=== PATIENT | male | born 1970 | race Caucasian/White ===

== ENCOUNTER 2017-02-26 13:40 | Emergency (ER) | payer BC ==
[~2017-02-26] VITALS: Ht 182.9 cm; Wt 122.9 kg
[~2017-02-26 13:40] MED LIST: ALEVE220 MG PO
[2017-02-26] MEDS ORDERED: PROAIR HFA8.5 GM INH (14:37)
[2017-02-26] MEDS ORDERED: PREDNISONE 20 M20 M1 PO (14:37)
[2017-02-26] MEDS ORDERED: ZPAK PO (14:37)
[2017-02-26] MEDS ORDERED: TESSALON PERLE100 MG PO (14:38)
[2017-02-26 14:55] VITALS: BP 156/88
== END 2017-02-26 14:56 | disposition home or self-care (01) ==
LOC: M.ERS 13:40
DX: J20.9 Acute bronchitis, unspecified (principal); K21.9 Gastro-esophageal reflux disease without esophagitis

== ENCOUNTER 2017-10-31 19:37 | Emergency (ER) | payer BC ==
[~2017-10-31] VITALS: Ht 182.9 cm; Wt 122.9 kg
[~2017-10-31 19:37] MED LIST changes: +PREDNISONE 20 M20 M1 PO; +PROAIR HFA8.5 GM INH; +TESSALON PERLE100 MG PO; +ZPAK PO
[2017-10-31] MEDS ORDERED: BACTRIM DS TAB1 EACH PO (20:24)
[2017-10-31] MEDS ORDERED: KEFLEX500 M1 PO (20:24)
[2017-10-31 20:31] VITALS: BP 142/96
== END 2017-10-31 20:32 | disposition home or self-care (01) ==
LOC: M.ERS 19:37
DX: L02.414 Cutaneous abscess of left upper limb (principal); L03.114 Cellulitis of left upper limb; K21.9 Gastro-esophageal reflux disease without esophagitis; F17.210 Nicotine dependence, cigarettes, uncomplicated

== ENCOUNTER 2018-03-13 23:27 | Emergency (ER) | payer OTHER ==
[~2018-03-13] VITALS: Ht 182.9 cm; Wt 135.2 kg
[~2018-03-13 23:27] MED LIST changes: +BACTRIM DS TAB1 EACH PO; +KEFLEX500 M1 PO
[2018-03-14] MEDS ORDERED: ZPAK PO (00:04)
[2018-03-14] MEDS ORDERED: PREDNISONE 20 M20 M1 PO (00:04)
[2018-03-14 00:23] VITALS: BP 142/92
== END 2018-03-14 00:23 | disposition home or self-care (01) ==
LOC: M.ERS 23:27
DX: J20.9 Acute bronchitis, unspecified (principal); J06.9 Acute upper respiratory infection, unspecified; K21.9 Gastro-esophageal reflux disease without esophagitis

== ENCOUNTER 2019-06-01 19:02 | Emergency (ER) | payer OTHER ==
[~2019-06-01] VITALS: Ht 182.9 cm; Wt 136.5 kg
[2019-06-01] MEDS ORDERED: PROAIR HFA8.5 GM INH (19:12)
[2019-06-01] MEDS ORDERED: BENZONATATE200 MG PO (19:13)
[2019-06-01] MEDS ORDERED: AUGMENTIN 875-1 EACH PO (19:13)
[2019-06-01] MEDS ORDERED: VENTOLIN HFA 1818 GM INH (19:39)
[2019-06-01] MEDS ORDERED: SPACERADULT INH (19:39)
[2019-06-01 20:08] LABS: INFLUENZA A ANTIGEN Negative (Negative); INFLUENZA B ANTIGEN Negative (Negative)
[2019-06-01 20:47] VITALS: BP 136/82
--- NOTE | 2019-06-03 10:16 | EKG ---
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
== END 2019-06-01 20:49 | disposition home or self-care (01) ==
LOC: M.ERS 19:02
PROVIDERS: Emergency Medicine
DX: J40 Bronchitis, not specified as acute or chronic (principal); K21.9 Gastro-esophageal reflux disease without esophagitis

== ENCOUNTER 2019-08-01 20:37 | Emergency (ER) | payer OTHER ==
[~2019-08-01] VITALS: Ht 182.9 cm; Wt 137.0 kg
[~2019-08-01 20:37] MED LIST changes: +AUGMENTIN 875-1 EACH PO; +BENZONATATE200 MG PO; +SPACERADULT INH; +VENTOLIN HFA 1818 GM INH
[2019-08-01 21:10] LABS: URINE BILIRUBIN NEGATIVE (Negative); URINE BLOOD NEGATIVE (Negative); URINE CLARITY CLEAR; URINE COLOR YELLOW; URINE GLUCOSE-RANDOM NEGATIVE (Negative); URINE KETONES TRACE (Negative); URINE LEUKOCYTES-REFLEX NEGATIVE (Negative); URINE NITRITE-REFLEX NEGATIVE (Negative); URINE PROTEIN NEGATIVE (Negative); URINE SPECIFIC GRAVITY >= 1.030 (1.005-1.030); URINE UROBILINOGEN 0.2 E.U./dl (0.2-1.0)
[2019-08-01 21:36] LABS: ABSOLUTE BASOPHILS 0.1 thou/uL (0.0-0.2); ABSOLUTE EOSINOPHILS 0.4 thou/uL (0.0-0.7); ABSOLUTE LYMPHOCYTES 1.8 thou/uL (0.8-5.3); ABSOLUTE MONOCYTES 0.6 thou/uL (0.0-1.2); ABSOLUTE NEUTROPHILS 3.2 thou/uL (1.6-8.1); EOSINOPHILS 6.1 %; HEMOGLOBIN 13.8 gm/dL (14.0-18.0); LYMPHOCYTES 30.5 %; MCH 30.5 pg (26.0-34.0); MCHC 35.3 g/dL (28.0-37.0); MCV 86.5 fL (80.0-100.0); MONOCYTES 9.6 %; MPV 9.1 fl. (7.2-11.1); NUCLEATED RBCS 0 /100WBC; PLATELET COUNT* 151 thou/uL (150-400); POLYS 52.8 %; RDW-CV 14.1 % (10.5-14.5)
[2019-08-01 21:58] LABS: ALBUMIN 3.3 g/dL (3.4-5.0); CALCIUM 8.9 mg/dL (8.5-10.1); CREATININE 1.4 mg/dL (0.6-1.3); TOTAL BILIRUBIN 0.3 mg/dL (<0.1-1.0); TOTAL PROTEIN 7.3 g/dL (6.4-8.2)
[2019-08-02] MEDS ORDERED: MAGNESIUM CITR296 ML PO (00:48)
[2019-08-02] MEDS ORDERED: ZOFRAN ODT4 MG DISSOLVE (00:48)
[2019-08-02] MEDS ORDERED: NORCO 5-325 TA1 EAC1 PO (00:48)
[2019-08-02 01:08] VITALS: BP 135/67
--- NOTE | 2019-08-02 10:32 | EKG ---
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1970 Requested By: Cam Boyle Order Number: [id number] MD: Venkatesh Perdue Measurements Intervals [place] Rate: 67 P: 28 SC: 177 QRS: 3 QRSD: 83 T: -16 QT: 360 QTc: 380 Interpretive Statements Sinus rhythm Low voltage, precordial leads Borderline T abnormalities, inferior leads Compared to ECG 06/01/2019 19:16:24 Low QRS voltage now present T-wave abnormality still present Electronically Signed On 08-02-2019 10:30:18 CDT by Venkatesh Perdue [email or web address] <ELECTRONICALLY SIGNED> By: Venkatesh Perdue MD, FAC 08/02/19 1030 08 08 Venkatesh Perdue MD, [facility] /EPI
== END 2019-08-02 01:10 | disposition home or self-care (01) ==
LOC: M.ERS 20:37
PROVIDERS: Emergency Medicine Emergency Medical Services
DX: K59.00 Constipation, unspecified (principal); K42.9 Umbilical hernia without obstruction or gangrene; K21.9 Gastro-esophageal reflux disease without esophagitis

== ENCOUNTER 2019-11-23 17:34 | Emergency (ER) | payer OTHER ==
[~2019-11-23] VITALS: Ht 182.8 cm; Wt 120.2 kg
[~2019-11-23 17:34] MED LIST changes: +MAGNESIUM CITR296 ML PO; +NORCO 5-325 TA1 EAC1 PO; +ZOFRAN ODT4 MG DISSOLVE
[2019-11-23 18:06] LABS: ABSOLUTE BASOPHILS 0.1 thou/uL (0.0-0.2); ABSOLUTE EOSINOPHILS 0.3 thou/uL (0.0-0.7); ABSOLUTE LYMPHOCYTES 1.7 thou/uL (0.8-5.3); ABSOLUTE MONOCYTES 0.7 thou/uL (0.0-1.2); ABSOLUTE NEUTROPHILS 5.1 thou/uL (1.6-8.1); BASOPHILS 0.8 %; EOSINOPHILS 3.5 %; HEMATOCRIT 42.1 % (42.0-52.0); HEMOGLOBIN 14.8 gm/dL (14.0-18.0); LYMPHOCYTES 21.3 %; MCH 30.2 pg (26.0-34.0); MCHC 35.1 g/dL (28.0-37.0); MCV 86.1 fL (80.0-100.0); MONOCYTES 8.8 %; MPV 8.5 fl. (7.2-11.1); NUCLEATED RBCS 0 /100WBC; PLATELET COUNT* 164 thou/uL (150-400); POLYS 65.6 %; RBC 4.89 mil/uL (4.50-6.00); RDW-CV 14.2 % (10.5-14.5); WBC 7.8 thou/uL (4.0-11.0)
[2019-11-23 18:09] LABS: CALCIUM 9.4 mg/dL (8.5-10.1); CREATININE 1.3 mg/dL (0.6-1.3); POTASSIUM 3.9 mmol/L (3.5-5.1)
[2019-11-23 18:13] LABS: ALBUMIN 3.7 g/dL (3.4-5.0); APTT 24.6 Seconds (25.0-31.3); PROTIME 10.7 Seconds (9.20-11.50); TOTAL BILIRUBIN 0.5 mg/dL (<0.1-1.0); TOTAL PROTEIN 7.7 g/dL (6.4-8.2)
[2019-11-23 19:19] LABS: URINE BILIRUBIN NEGATIVE (Negative); URINE BLOOD NEGATIVE (Negative); URINE CLARITY CLEAR; URINE COLOR YELLOW; URINE GLUCOSE-RANDOM NEGATIVE (Negative); URINE KETONES NEGATIVE (Negative); URINE LEUKOCYTES NEGATIVE (Negative); URINE NITRITE NEGATIVE (Negative); URINE PROTEIN NEGATIVE (Negative)
[2019-11-23 19:40] VITALS: BP 154/64
--- NOTE | 2019-11-24 13:02 | EKG ---
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1970 Requested By: Fauzia Perla Order Number: [id number] MD: Dariel Pineda Measurements Intervals [place] Rate: 71 P: 20 [place]: 172 QRS: -6 QRSD: 85 T: -3 QT: 357 QTc: 388 Interpretive Statements Sinus rhythm Possible left atrial enlargement Anteroseptal infarct, old, possible Borderline T abnormalities, inferior leads Compared to ECG 08/01/2019 21:09:18 Myocardial infarct finding now present T-wave abnormality still present Electronically Signed On 11-24-2019 13:01:48 CDT by Dariel Pineda [email or web address] <ELECTRONICALLY SIGNED> By: Dariel Pineda MD, FACC 11/24/19 1301 180 180 Dariel Pineda MD, FACC /EPI
== END 2019-11-23 19:40 | disposition home or self-care (01) ==
LOC: M.ERS 17:34
PROVIDERS: Physician Assistant
DX: K42.9 Umbilical hernia without obstruction or gangrene (principal); K21.9 Gastro-esophageal reflux disease without esophagitis

== ENCOUNTER 2020-04-19 13:24 | Emergency (ER) | payer OTHER ==
[~2020-04-19] VITALS: Ht 182.9 cm; Wt 138.3 kg
[2020-04-19] MEDS ORDERED: HYDROCODON-ACE1 EAC7 PO (14:00)
[2020-04-19] MEDS ORDERED: FLEXERIL PO (14:00)
[2020-04-19] MEDS ORDERED: MEDROLDOSEPACK PO (14:00)
[2020-04-19 14:22] VITALS: BP 139/87
== END 2020-04-19 14:22 | disposition home or self-care (01) ==
LOC: M.ERS 13:24
DX: M54.5 Low back pain (principal); K21.9 Gastro-esophageal reflux disease without esophagitis

== ENCOUNTER 2020-10-30 20:15 | Emergency (ER) | payer OTHER ==
[~2020-10-30] VITALS: Ht 180.3 cm; Wt 136.1 kg
[~2020-10-30 20:15] MED LIST changes: +FLEXERIL PO; +HYDROCODON-ACE1 EAC7 PO; +MEDROLDOSEPACK PO
[2020-10-30 20:24] VITALS: BP 158/96
[2020-10-30 20:59] LABS: ABSOLUTE BASOPHILS 0.1 thou/uL (0.0-0.2); ABSOLUTE EOSINOPHILS 0.2 thou/uL (0.0-0.7); ABSOLUTE LYMPHOCYTES 1.5 thou/uL (0.8-5.3); ABSOLUTE MONOCYTES 0.6 thou/uL (0.0-1.2); ABSOLUTE NEUTROPHILS 4.2 thou/uL (1.6-8.1); EOSINOPHILS 3.2 %; HEMATOCRIT 38.2 % (42.0-52.0); LYMPHOCYTES 23.4 %; MCH 28.9 pg (26.0-34.0); MCV 84.9 fL (80.0-100.0); MONOCYTES 9.2 %; MPV 9.1 fl. (7.2-11.1); NUCLEATED RBCS 0 /100WBC; PLATELET COUNT* 133 thou/uL (150-400); POLYS 63.2 %; RDW-CV 14.4 % (10.5-14.5); WBC 6.6 thou/uL (4.0-11.0)
[2020-10-30 21:06] LABS: CALCIUM 8.8 mg/dL (8.5-10.1); CREATININE 1.2 mg/dL (0.6-1.3); POTASSIUM 4.3 mmol/L (3.5-5.1)
[2020-10-30 21:11] LABS: ALBUMIN 3.3 g/dL (3.4-5.0); TOTAL BILIRUBIN 0.6 mg/dL (<0.1-1.0); TOTAL PROTEIN 6.7 g/dL (6.4-8.2)
--- NOTE | 2020-10-31 14:24 | EKG ---
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1970 Requested By: Sarah Rosales Order Number: [id number] MD: Dariel Pineda Measurements Intervals [place] Rate: 63 P: 75 [place]: 188 QRS: 73 QRSD: 84 T: 110 QT: 369 QTc: 378 Interpretive Statements Sinus rhythm Low voltage with right axis deviation Compared to ECG 11/23/2019 18:07:38 Right-axis deviation now present Low QRS voltage now present Myocardial infarct finding no longer present T-wave abnormality no longer present Electronically Signed On 10-31-2020 14:24:31 CDT by Dariel Pineda [email or web address] <ELECTRONICALLY SIGNED> By: Dariel Pineda MD, FACC 10/31/20 1424 26 26 Dariel Pineda MD, FACC /EPI
== END 2020-10-30 22:17 | disposition home or self-care (01) ==
LOC: M.ERS 20:15
PROVIDERS: Physician Assistant
DX: R53.1 Weakness (principal); Z20.822 Contact with and (suspected) exposure to COVID-19; R42 Dizziness and giddiness; R51.9 Headache, unspecified; K21.9 Gastro-esophageal reflux disease without esophagitis; R07.89 Other chest pain

== ENCOUNTER 2021-02-08 19:34 | Emergency (ER) | payer OTHER ==
[~2021-02-08] VITALS: Ht 182.9 cm; Wt 136.1 kg
[2021-02-08 20:12] LABS: INFLUENZA A ANTIGEN Negative (Negative); INFLUENZA B ANTIGEN Negative (Negative)
[2021-02-08] MEDS ORDERED: ZOFRAN ODT4 MG PO (20:24)
[2021-02-08 20:36] VITALS: BP 163/99
== END 2021-02-08 20:36 | disposition home or self-care (01) ==
LOC: M.ERS 19:34
PROVIDERS: Personal Emergency Response Attendant
DX: J06.9 Acute upper respiratory infection, unspecified (principal); Z20.822 Contact with and (suspected) exposure to COVID-19; K21.9 Gastro-esophageal reflux disease without esophagitis

== ENCOUNTER → 2021-04-05 | Emergency (ER) | payer OTHER ==
[~2021-04-05] VITALS: Ht 182.9 cm; Wt 136.1 kg
[~2021-04-05] MED LIST changes: +ZOFRAN ODT4 MG PO
[2021-04-05 20:58] VITALS: BP 146/95
== END ==
LOC: M.ERS 20:38
DX: R10.9 Unspecified abdominal pain (principal); Z53.21 Procedure and treatment not carried out due to patient leaving prior to being seen by health care provider